=== PATIENT | female | born 1955 | race Caucasian/White ===

== ENCOUNTER 2017-01-26 09:47 | Day surgery (SDC) | payer OTHER ==
--- NOTE | 2017-01-22 16:30 | PREOPHP ---
DATE OF ADMISSION: 01/26/2017 The patient to have outpatient surgery at [facility] with Dr. Jad Campbell on 01/26/2017. REQUESTING PHYSICIAN: Dr. Robert Campbell REASON FOR CONSULTATION: Medical evaluation and clearance of a 61-year-old woman about to undergo surgery. Thank you, Dr. Campbell, for allowing us to participate in care of this patient. HISTORY OF PRESENT ILLNESS: Eliana Mathis, a 61-year-old woman currently has issues with her right hip, diagnosed as a torn labrum of the right hip, is currently being admitted for correction of the above problem. PAST MEDICAL HISTORY: In terms of her past surgical history, the patient has had 2 C-sections, has had no other surgery has had no medical hospitalization, has broken bones. MEDICATIONS: Currently takin. Synthroid 125 mcg a day. 2. Some supplements and vitamins. ALLERGIES: SHE IS NOT ALLERGIC TO ANY MEDICATIONS. SOCIAL HISTORY: The patient is , has 2 children. She does not smoke or drink alcoholic beverages, does drink coffee, is employed and usually has no difficulty sleeping at night. FAMILY HISTORY: Both parents are . Father of pancreatic cancer. Mother of pulmonary hypertension. Two sisters who are alive and well and other than the cancer and questionable strokes, there was thyroid history in her family. No diabetes or heart or hypertension to her knowledge. REVIEW OF SYSTEMS HEENT: Denies any significant headaches. CARDIORESPIRATORY: No chest pain or shortness of breath. GASTROINTESTINAL: No melena or hematemesis. GENITOURINARY: No urgency or frequency. GYNECOLOGIC: Post-menopause. MUSCULOSKELETAL: Positive for right hip pain. NEUROPSYCHIATRIC: Unremarkable. PHYSICAL EXAMINATION: VITAL SIGNS: The patient's blood pressure was 118/74, pulse was 88 and regular , respirations were 18, temperature 98.5, height 5 feet 4 inches, weight 183 pounds. GENERAL: The patient was noted to be a well-developed, well-nourished female, alert and cooperative in no apparent acute distress, oriented to time, place, and person. HEAD, EYES, NOSE AND THROAT: Head was atraumatic. Eyes: Pupils were equal, reactive to light and accommodation. Fundi were benign. Tympanic membranes were unremarkable. Nose was negative. Mouth was unremarkable. Fair oral hygiene was present. NECK: Supple without any rigidity. Trachea was midline. Thyroid was unremarkable. Neck veins were flat. Carotid pulses were equal. No bruits were heard. BACK: Unremarkable. CHEST: Symmetrical. BREASTS AND AXILLARY: Did not reveal any obvious masses. LUNGS: Clear to percussion and auscultation. HEART: PMI was at the fifth intercostal space at the midclavicular line. Regular sinus rhythm was noted. No significant murmurs, rubs, or gallops being elicited. ABDOMEN: Soft, good bowel sounds were noted. No significant organomegaly, masses, or tenderness. GENITALIA: Pelvirectal exam per hypoid gear generator, up to date, unremarkable. EXTREMITIES: Did not reveal any clubbing, edema or cyanosis. Peripheral pulses were physiologic. SKIN: Moist and warm without any eruptions. No gross lymphadenopathy was noted. NEUROLOGIC: Grossly intact. IMPRESSION: 1. Torn labrum, right hip. 2. Hypothyroidism. 3. Menopausal syndrome. 4. Stable health. DISCUSSION: Review of laboratory and other data revealed the following: The patient's chemistry panel including electrolytes, glucose, BUN, creatinine, calcium, liver function tests, thyroid function tests, CBC, UA, PT and PTT were basically normal other than a moderate amount of blood in the urine. Sed rate was minimally elevated as well. The patient's EKG was normal as was her chest x -ray without any acute infiltrates or other significant abnormalities in terms of cardiopulmonary changes being noted. Dr. Campbell, I see no contraindication in this patient undergoing current proposed surgery under desired form of anesthesia and I feel she is a suitable candidate at this particular point in time. Should any medical problems arise during his stay at [facility], we will be more than happy to follow them up at the appropriate times. Thank you again, Dr. Campbell, for allowing us to participate in care of this patient. Dictated By: SETH VICK/ISAIAS Conf#: [id number] DID#: [id number] MTDYao
[~2017-01-26] VITALS: Ht 162.6 cm; Wt 78.7 kg
[2017-01-26] VITALS (11 sets, daily range): BP systolic 98–142; BP diastolic 54–71; PULSE 65–88; RESP 15–23; Ht 162.6 cm; Wt 78.7 kg
--- NOTE | 2017-01-26 05:49 | HPN ---
Date/Time of Note Date/Time of Note DATE: 01/26/17 TIME: 05:49 Interval H&P Admission Note Pt. seen H&P reviewed: No system changes SAMIA GAUTHIER MD Jan 26, 2017 05:49
[~2017-01-26 09:47] MED LIST: BUPIVACAINE 0.5% (SDV) 30 ML, morphine SULFATE (PF) 8 MG, EPINEPHrine 0.3 MG, KETOROLAC... IRR SCH; CEFAZOLIN 2 GM/50 ML (PMX) 50 ML IVPB ONE; GABAPENTIN 300 MG CAP PO ONE; GLYCOPYRROLATE 0.4 MG INJ ONE; LACTATED RINGER'S 1,000 ML IV* SCH; NEOSTIGMINE 3 MG/3 ML SYRINGE ONE; TRANEXAMIC ACID 1,000 MG in SOD CHLORIDE 0.9% 100 ML IVPB SCH; traMADol 50 MG TAB PO ONE
[2017-01-26] MEDS ORDERED: LEVO125T PO (10:14)
[2017-01-26] MEDS ORDERED: BUPIVACAINE 0.5%/EPI (SDV) 30 ML INJ ONE (11:56)
[2017-01-26] MEDS ORDERED: ROCURONIUM 50 MG INJ ONE (12:22)
[2017-01-26] MEDS ORDERED: FENTAnyl 50 MCG/ML VIAL ONE (12:22)
[2017-01-26] MEDS ORDERED: ACETAMINOPHEN 1000MG/100ML IV 100 ML ONE (12:22)
[2017-01-26] MEDS ORDERED: PROPOFOL 100 ML ONE (12:22)
[2017-01-26] MEDS ORDERED: LIDOCAINE 2% (SDV) 5 ML INJ ONE (12:22)
[2017-01-26] MEDS ORDERED: FENTAnyl 50 MCG/ML VIAL IV PRN ×3 (12:30)
[2017-01-26] MEDS ORDERED: LABETALOL HCL 20MG INJ IV PRN (12:30)
[2017-01-26] MEDS ORDERED: OXYCODONE/ACETAMINOPHEN (5/325) TAB PO PRN ×2 (12:30)
[2017-01-26] MEDS ORDERED: EPHEDrine SULFATE 50 MG/5 ML SYG IV PRN (12:30)
[2017-01-26] MEDS ORDERED: DIPHENHYDRAMINE 50 MG INJ IV PRN (12:30)
[2017-01-26] MEDS ORDERED: ONDANSETRON 4 MG INJ IV PRN (12:30)
[2017-01-26] MEDS ORDERED: KETOROLAC 30 MG INJ IV PRN (12:30)
[2017-01-26] MEDS ORDERED: hydrALAzine 20 MG INJ IV PRN (12:30)
[2017-01-26] MEDS ORDERED: METOCLOPRAMIDE 10 MG INJ IV PRN (12:30)
[2017-01-26] MEDS ORDERED: HYDROmorphONE (0.2 MG/ML) 10ML SYG IV PRN ×3 (12:30)
[2017-01-26] MEDS ORDERED: MEPERIDINE 25 MG INJ IV PRN (12:30)
[2017-01-26] MEDS ORDERED: DEXAMETHASONE 4 MG/ML 1 ML INJ ONE (13:48)
[2017-01-26] MEDS ORDERED: ONDANSETRON 4 MG INJ ONE (14:16)
--- NOTE | 2017-01-26 14:27 | PDOCDIS ---
Discharge Instructions DIAGNOSIS Discharge Diagnosis Right hip labral tear with trochanteric bursitis CONDITION Patient Condition: Good HOME CARE INSTRUCTIONS: Diet Instructions: Regular ACTIVITY: Activity Restrictions: Slowly Increase Activity Keep Limb Elevated Bathing Restrictions: ShowerActivity Restrictions Comment: 2 weeks SCHOOL/WORK RELEASE May return to School/Work with: With Restrictions School/Work Release Comment: Crutches as necessary for the next 7 days SAMIA GAUTHIER MD Jan 26, 2017 14:27
--- NOTE | 2017-01-26 14:32 | OPR ---
Date/Time of Note Date/Time of Note DATE: 01/26/17 TIME: 14:28 Operative Report Procedure Date: Jan 26, 2017 Preoperative Diagnosis Right hip labral tear Postoperative Diagnosis 1 right hip labral tear 2 right hip trochanteric bursitis Operation/Procedure Performed 1. Right hip arthroscopic debridement of labral tear 2. Right hip endoscopic trochanteric bursectomy Surgeon see signature line Pediatric Medical Assistant Michael Diaz MD Anesthesia Type: general Estimated Blood Loss: 0 - 10 ml's Transfusion none Specimen None Grafts/Implants none Complications none Pt Condition Post Procedure: stable Disposition: PACU Procedure Description INDICATIONS FOR PROCEDURE AND SUMMARY: This patient has the clinical problem of femoroacetabular impingement. Essentially, there is an overgrowth of the femoral head and neck junction that is leading to the clinical problem of a torn labrum with its mechanical symptomatology and pain. The surgical procedure involves first a diagnostic arthroscopy and debridement or repair of the labral tear, followed by a separate entrance into the area of the impingement lesion. The hip is divided into two separate compartments termed the central and peripheral compartments. Traditionally, the procedures performed in the central compartment include labral debridement, synovectomy, and chondroplasty. The procedure described as a femoral neck resection includes treatment of the central compartment problems as well as re-positioning the extremity, starting new portals in the peripheral compartment (using fluoroscopic guidance once again), completing a diagnostic arthroscopy of this compartment and then finally resection of the femoral neck impingement lesion that is present. The concept of the procedure is somewhat like the evaluation of the shoulder where the glenohumeral compartment is evaluated, followed by the subacromial compartment. PERL SOFTWARE ENGINEER SURGEON: Michael Diaz MD was asked to be present at my request as a result of the significant surgical complexity associated with this procedure. Specifically, the arthroscopic resection of the femoral neck requires expert assistance with respect to the positioning of the arthroscope, which is a 70- degree arthroscope, while the surgeon exchanges instruments to perform the resection and labral repair. In my opinion, the assistance offered by a surgical assistant certified is not sufficient as a result of their lack of training with these instruments. Dr. Diaz should therefore be compensated for their time. PROCEDURE: Following the administration of general anesthesia supplemented with local anesthetic, the patient was placed in the supine position on the Benavides [employer] Nephew hip traction device. All prominences were properly padded, including the perineum and the ipsilateral arm. Examination of the right hip revealed a range of motion of 30 of internal rotation with 90 of flexion. The [] hip was prepped and draped in the usual sterile fashion. The leg was then placed in traction. Under fluoroscopic guidance, anterior and anterolateral portals were then established in the central compartment. CENTRAL COMPARTMENT DIAGNOSTIC: Examination revealed an area of grade 2 chondral delamination. The area extended from the 12 o'clock to the 9 o'clock position with 5 mm into the articular surface of the acetabulum. The labrum was frayed anteriorly this area also corresponded with the 12 to 9 o'clock position. There was significant peripheral fraying with no lakisha detachment. The ligamentum teres was mildly inflamed. The femoral cartilage revealed no significant findings with normal articular cartilage. CENTRAL COMPARTMENT PROCEDURE: The shaver and the ablator were then inserted. A limited capsulotomy was then performed over the area of the labral fraying. The ablator was then used to stabilize the peripheral tissue. No lakisha delamination was noted. The arthroscopic equipment was then removed. The leg was taken out of traction and repositioned to 45 of flexion with neutral rotation. The anterior portal was then used for entry into the peripheral compartment while using fluoroscopic localization for the appropriate portal position along the femoral neck. PERIPHERAL COMPARTMENT DIAGNOSTIC: Endoscopic examination revealed a good labral seal. Further evaluation revealed the peripheral femoral cartilage was normal. In addition, there is no impingement lesion. TROCHANTERIC BURSECTOMY: Following the completion of the central compartment procedure, the leg was then placed in full extension and internal rotation. Using anterior and anterolateral portals the trochanteric bursa was then entered. An extensive amount of bursal reactive tissue was then resected back to normal tissue. The abductor mechanism was noted to be completely normal with no significant tearing. The arthroscopic equipment was then removed, following thorough irrigation of the joint to assure that all bony debris was cleared. The wounds were closed using #4-0 Monocryl sutures, followed by a sterile dressing. The patient was then extubated and transported to the recovery room in stable condition, having tolerated the procedure well. SAMIA GAUTHIER MD Jan 26, 2017 14:32
--- NOTE | 2017-01-26 16:27 | RADRPT ---
PROCEDURE: Intraoperative imaging of the right hip with fluoroscopy. CLINICAL INDICATION: Right hip pain. Intraoperative. TECHNIQUE: 3 images of the right hip were obtained in the operating room with an image intensifier . No radiologist was in attendance. 55 seconds of fluoroscopy time was used. COMPARISON: No prior study is available for comparison. FINDINGS: Images demonstrate surgical instruments overlying the right hip. IMPRESSION: 1. Satisfactory intraoperative imaging of the right hip. RPTAT: QQ .Herbert Rao MD, MD Date Time Electronically viewed and signed by .Herbert Rao MD, on 01/26/2017 16:26 .R/
== END 2017-01-26 16:57 | disposition home or self-care (01) ==
LOC: SDS 09:47
PROVIDERS: ATTEND Orthopaedic Surgery
DX: S73.191A Other sprain of right hip, initial encounter (principal); M70.61 Trochanteric bursitis, right hip; E03.9 Hypothyroidism, unspecified; E66.9 Obesity, unspecified; Z68.29 Body mass index [BMI] 29.0-29.9, adult; X58.XXXA Exposure to other specified factors, initial encounter; Y93.9 Activity, unspecified; Y99.9 Unspecified external cause status; Y92.9 Unspecified place or not applicable
CPT/HCPCS: 29862; 73530; J0131; J0171; J0735; J1100; J1885; J2274; J2405; J2710; J3010; J3370; J7120